=== PATIENT | male | born 1975 | race Caucasian/White ===

== ENCOUNTER 2022-08-05 15:25 | Emergency (ER) | payer MEDICAID, OTHER ==
[2022-08-05 15:33] VITALS: BP 131/80
[2022-08-05] MEDS ORDERED: lidocaine 1% 20 ML MDV SUBQ ONE (16:26)
[2022-08-05] MEDS ORDERED: BACITRACIN ZINC OINT 1 PACKET TOP STA (16:26)
[2022-08-05] MEDS ORDERED: TETANUS/DIPHTHERIA/PERTUSSIS 0.5 ML SYRINGE IM ONE (16:26)
--- NOTE | 2022-08-05 16:28 | ED Physician Documentation ---
History of Present Illness - Stated complaint Stated Complaint: LEFT THUMB INJURY - Chief complaint Chief Complaint: Laceration - Additonal information Additional information: 47-year-old right-handed male presents emergency department for evaluation of a left distal thumb laceration sustained when using a band saw. Not anticoagulated. Last tetanus in 2003. No active bleeding. Sensation and neurovascular status preserved Review of Systems Constitutional: reports: Reviewed and negative Cardiac: reports: Reviewed and negative Respiratory: reports: Reviewed and negative Skin: reports: Laceration (s) PD PAST MEDICAL HISTORY - Past Medical History Past Medical History: Yes Respiratory: Asthma - Present Medications Home Medications: Ambulatory Orders Medication Instructions Recorded Confirmed Albuterol Sulf [Ventolin Hfa 1 puffs INH Q4HR PRN 08/05/22 08/05/22 Inhaler] Fexofenadine [Kinjal] 60 mg PO DAILY 08/05/22 08/05/22 Fluticasone 44 Mcg [Flovent] 1 puffs INH BID 08/05/22 08/05/22 - Allergies Allergies/Adverse Reactions: Allergies Allergy/AdvReac Type Severity Reaction Status Date / Time No Known Drug Allergies Allergy Verified 08/05/22 15:33 - Social History Does the pt smoke?: No Smoking Status: Never smoker PD ED PE EXPANDED - Extremities Extremities: Left finger(s) (2 cm laceration left distal tip of the thumb laterally. Able to flex and extend at DIP joint. Neurovascularly intact) Results - Vitals Vitals: Vital Signs - 24 hr 08/05/22 15:29 Temperature 36.0 C L Heart Rate 74 Respiratory 16 Rate Blood Pressure 131/80 H O2 Saturation 100 Oxygen O2 Source Room air Procedures - Laceration (location) left thumb Length in cm: 3 Wound type: Into muscle, Clean Neurovascular status: Sensory intact, Motor intact Tendon involvement: Tendon intact Anesthesia: Lidocaine 1% Wound preparation: Chlorhexadine, Irrigated copiously NS Skin layer closure: Interrupted, Size #-0 - enter number (4), Sutures - enter # (4) Other: Patient tolerated well, No complications, Neurovascular intact, Dressing applied, Tetanus booster given PD MEDICAL DECISION MAKING - ED course Complexity details: d/w patient, d/w family ED course: 47-year-old male presents emergency department for evaluation of a left thumb injury/laceration sustained when using the band saw at home. He is right-hand dominant. Tetanus was updated today. Neurovascularly intact without evidence of tendon injury. Wound was thoroughly cleansed and closed using 4 sutures. Routine wound care and emergent return precautions were discussed. Departure - Departure Disposition: 01 Home, Self Care Clinical Impression: Laceration of left thumb Qualifiers: Encounter type: initial encounter Damage to nail status: without damage Foreign body presence: without foreign body Qualified Code(s): S61.012A - Laceration without foreign body of left thumb without damage to nail, initial encounter Condition: Stable Record reviewed to determine appropriate education?: Yes Instructions: ED Laceration Hand Comments: Your suture(s) should be removed in about10 days. In 24 hours you may remove the dressing wash gently with warm soap and water, apply any antibiotic ointment and a simple bandage. Your tetanus was updated today and should be good for the next 7 to 10 years Please attempt to keep your wound clean and dry. Do not submerge it in dirty dishwater or bath water. Return to the emergency department if you have any concerns of infection such as redness, fevers milky drainage increased pain.
== END 2022-08-05 16:57 | disposition home or self-care (01) ==
LOC: ED 15:25
DX: S61.012A Laceration without foreign body of left thumb without damage to nail, initial encounter (principal); W31.2XXA Contact with powered woodworking and forming machines, initial encounter; Y92.009 Unspecified place in unspecified non-institutional (private) residence as the place of occurrence of the external cause
CPT/HCPCS: 12002; 90471; 90715; 99283; A9270